=== PATIENT | female | born 1980 | race Caucasian/White ===

== ENCOUNTER 2023-07-17 10:12 | Emergency (ER) | payer BC ==
[~2023-07-17] VITALS: Ht 157.5 cm; Wt 54.6 kg
[2023-07-17] MEDS ORDERED: CEFD300C3 PO (10:55)
[2023-07-17 11:05] VITALS: BP 121/63; PULSE 64; RESP 15; TEMP 98.9; O2SAT 96
== END 2023-07-17 11:13 | disposition home or self-care (01) ==
LOC: ER 10:13
DX: J20.9 Acute bronchitis, unspecified (principal)
CPT/HCPCS: 71045; 99283